=== PATIENT | female | born 2000 | race Caucasian/White ===

== ENCOUNTER 2022-08-12 12:52 | Inpatient (IN) ==
[2022-08-12] MEDS ORDERED: CARBOPROST TROMETHAMINE 250 MCG/ML AMP IM PRN (13:38)
[2022-08-12] MEDS ORDERED: MEPERIDINE 25 MG/1 ML VIAL IV PRN (13:38)
[2022-08-12] MEDS ORDERED: miSOPROStoL 200 MCG TABLET RECTAL PRN (13:38)
[2022-08-12] MEDS ORDERED: METHYLERGONOVINE 0.2 MG/1 ML AMP IM PRN (13:38)
[2022-08-12] MEDS ORDERED: ONDANSETRON 4 MG/2 ML VIAL IV PRN (13:38)
[2022-08-12] MEDS ORDERED: TRANEXAMIC ACID 1,000 MG in SODIUM CHLORIDE 0.9% 100 ML IV PRN (13:38)
[2022-08-12] MEDS ORDERED: OXYTOCIN/LR 20 UNIT/1,000 ML BAG IV ONE (13:38)
[2022-08-12] MEDS ORDERED: BUTORPHANOL 2 MG/ML VIAL IV PRN (13:38)
[2022-08-12] MEDS: LACTATED RINGERS 1,000 ML IV SCH ×2 (13:56→15:16)
[2022-08-12 13:58] LABS: Basophils % 0.1 % (0.0-0.8); Eosinophils # 0.2 10*3/uL (0.0-0.87); Eosinophils % 1.7 % (0.00-10.9); Hematocrit 35.1 VOL% (35.7-47.0); Hemoglobin 11.6 GM/DL (12.0-16.0); Immature Granulocytes % 0.5 %; Immature Granulocytes Absolute 0.05 #; Lymphocytes # 1.8 10*3/uL (1.4-4.0); Mean Corpuscular Volume 93.9 FL (87-102); Mean Platelet Volume 10.7 FL (9.6-12.0); Monocytes # 0.5 10*3/uL (0.11-0.8); Monocytes % 5.5 % (1.7-12.7); Neutrophils % 73.2 % (38.7-73.9); Platelet Count 173 T/CUMM (130-400); Red Blood Count 3.74 MC/CUMM (3.8-5.5); Red Cell Distribution Width 13.1 % (9.3-17.3); White Blood Count 9.6 T/CUMM (4-12)
[2022-08-12] MEDS ORDERED: OXYTOCIN/LR 20 UNIT/1,000 ML BAG IV SCH (14:00)
[2022-08-12] MEDS ORDERED: AMPICILLIN INJ 2,000 MG in SODIUM CHLORIDE 0.9% 100 ML IV SCH (14:00)
[2022-08-12] MEDS ORDERED: ePHEDrine 50 MG/ML VIAL IV PRN (14:10)
[2022-08-12] MEDS ORDERED: diphenhydrAMINE 50 MG/1 ML VIAL IV PRN ×2 (14:10)
[2022-08-12] MEDS ORDERED: CITRIC ACID/SODIUM CITRATE 30 ML UDCUP PO ONE (14:10)
[2022-08-12] MEDS ORDERED: FAMOTIDINE 20 MG/2 ML VIAL IV ONE (14:10)
[2022-08-12] MEDS ORDERED: hydrOXYzine HCL 25 MG/1 ML VIAL IM PRN (14:10)
[2022-08-12] MEDS ORDERED: LACTATED RINGERS 1,000 ML IV ONE (14:10)
[2022-08-12] MEDS ORDERED: NALOXONE 0.4 MG/ML VIAL IV PRN (14:10)
[2022-08-12] MEDS ORDERED: PROMETHAZINE 25 MG/1 ML VIAL IM ONE (14:10)
[2022-08-12] MEDS ORDERED: fentaNYL 2 MCG/ROPIV 0.2% EPID 100 ML EPIDURAL SCH (14:30)
[2022-08-12 15:56] LABS: HIV Antigen/Antibody Result Nonreactive (Nonreactive)
[2022-08-12 16:41] LABS: Bacteria,Urine Occasional /HPF (Few); Bilirubin,Urine Negative (Negative); Blood, Urine Negative (Negative); Glucose,Urine (UA) Negative (Negative); Ketones,Urine 20 mg/dL (Negative); Mucus,Urine Occasional /LPF (Occasional); Nitrite,Urine Negative (Negative); Protein,Urine Negative (Negative); RBC,Urine 1 /HPF (0-4); Squamous Epithelial Cell,Urine Occasional /HPF (0-10); Urine Appearance CLEAR (Clear); Urine Color Yellow (Yellow); Urine Specific Gravity 1.009 (1.001-1.035)
[2022-08-12 17:31] LABS: Barbiturates Screen,Urine Negative (Negative); Benzodiazepines Screen,Urine Negative (Negative); Cannabinoid Screen,Urine Negative (Negative); Opiate Screen,Urine Negative (Negative); Phencyclidine Screen,Urine Negative (Negative)
[2022-08-12] MEDS: AMPICILLIN INJ 1,000 MG in SODIUM CHLORIDE 0.9% 100 ML IV SCH ×2 (18:01→22:44)
[2022-08-13] MEDS ORDERED: MEPERIDINE 25 MG/1 ML VIAL IV ONE (00:30)
[2022-08-13 00:57] LABS: Cord Venous Blood HCO3 21.1 MMOL/L; Cord Venous Blood PCO2 41.7 MMHG; Cord Venous Blood PO2 35.1
[2022-08-13] MEDS: IBUPROFEN 800 MG TABLET PO PRN ×2 (04:20→16:15)
[2022-08-13 06:58] LABS: Basophils % 0.2 % (0.0-0.8); Eosinophils % 0.3 % (0.00-10.9); Hematocrit 33.7 VOL% (35.7-47.0); Hemoglobin 11.3 GM/DL (12.0-16.0); Immature Granulocytes % 0.6 %; Immature Granulocytes Absolute 0.07 #; Lymphocytes # 1.5 10*3/uL (1.4-4.0); Lymphocytes % 12.4 % (21.3-54.2); Mean Corpuscular HGB Conc 33.5 GM/DL (32-36); Mean Corpuscular Volume 92.8 FL (87-102); Mean Platelet Volume 10.7 FL (9.6-12.0); Monocytes # 0.8 10*3/uL (0.11-0.8); Monocytes % 6.2 % (1.7-12.7); Neutrophils % 80.3 % (38.7-73.9); Platelet Count 155 T/CUMM (130-400); Red Blood Count 3.63 MC/CUMM (3.8-5.5); Red Cell Distribution Width 12.9 % (9.3-17.3); White Blood Count 12.5 T/CUMM (4-12)
[2022-08-13] MEDS: DOCUSATE SODIUM 100 MG CAPSULE PO SCH ×2 (09:16→20:40)
[2022-08-14] MEDS: IBUPROFEN 800 MG TABLET PO PRN ×3 (02:20→18:03)
[2022-08-14] MEDS: DOCUSATE SODIUM 100 MG CAPSULE PO SCH ×2 (08:56→21:26)
[2022-08-15] MEDS ORDERED: HYDROCORTISONE 2.5% CREAM 30 GM TUBE TOP PRN (00:13)
[2022-08-15] MEDS: IBUPROFEN 800 MG TABLET PO PRN (05:45)
[2022-08-15 09:20] VITALS: BP 110/56
[2022-08-15] MEDS: DOCUSATE SODIUM 100 MG CAPSULE PO SCH (09:50)
== END 2022-08-15 12:05 | disposition home or self-care (01) | DRG 560 ==
LOC: N.LDOUT 12:52 → N.LD 12:55 → N.OB 08-13 02:50
PROVIDERS: ADMIT Obstetrics & Gynecology; ATTEND Obstetrics & Gynecology